=== PATIENT | male | born 1990 | race Caucasian/White ===

== ENCOUNTER 2020-08-31 10:28 | Inpatient (IN) | payer MEDICAID, SELFPAY ==
[2020-08-31] VITALS (7 sets, daily range): BP systolic 109–128; BP diastolic 64–95; PULSE 74–112; RESP 16–21; TEMP 36.6–37; O2SAT 88–99; BMI 20.9
[2020-08-31] MEDS: haloperidol inj 5 mg/mL INJ 1 mL IM (11:31)
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
[2020-08-31] MEDS: LORazepam 2 mg/mL INJ 1 mL IM (11:39)
[2020-08-31] MEDS: diphenhydrAMINE 50 mg/mL SDV 1mL IM (11:39)
--- NOTE | 2020-08-31 11:50 | PC.NURSE ---
people present at code 10 ISMA MARIANO, FATEMEH GUERRIER
[2020-08-31 12:05] LABS: Add Urine Microscopic? NO; Charge for UA Resulting for Rev
[2020-08-31 12:21] LABS: Bilirubin Urine 1+ (Negative); Blood Urine Neg (Negative); Glucose Urine UA Norm (Normal); Ketones Urine 2+ (Negative); Leukocyte Esterase Urine Negative (Negative); Nitrate Urine Negative (Negative); Protein Urine Neg (Negative); Urine Appearance Clear (CLEAR); Urine Color Yellow (Yellow); Urobilinogen Urine 4 mg/dL (Negative); pH Urine 7 (5-7)
[2020-08-31 12:27] LABS: Amphetamines Screen Urine Positive (Negative); Barbiturates Screen Urine Negative (Negative); Benzodiazepines Screen Urine Positive (Negative); Cocaine Screen Urine Negative (Negative); Opiate Screen Urine Negative (Negative); PCP Screen Urine Negative (Negative); THC Screen Urine Negative (Negative)
[2020-08-31 12:48] LABS: Basophils # 0.1 10^3/uL (0.0-0.1); Basophils % 0.6 %; Eosinophils # 0.3 10^3/uL (0.0-0.8); Eosinophils % 1.7 %; Hematocrit 44.8 % (42.0-52.0); Hemoglobin 15.2 g/dL (11.7-16.6); Lymphocytes % 17.8 %; Mean Corpuscular HGB Conc 33.9 g/dL (30.0-36.0); Mean Corpuscular Hemoglobin 29.3 pg (28.0-34.0); Mean Corpuscular Volume 86.5 fL (80-94); Mean Platelet Volume 11.2 fL (7.4-10.4); Monocytes # 1.6 10^3/uL (0.2-0.9); Monocytes % 9.3 %; Neutrophils # 11.97 10^3/uL (1.8-7.7); Neutrophils % 70.2 %; Nucleated Red Blood Cells % 0 %; Platelet Count 282 10^3/cmm (130-400); Red Blood Count 5.18 10^6/uL (4.1-5.3); Red Cell Distribution Width 12.7 % (12.1-15.1)
[2020-08-31 13:02] LABS: Alanine Aminotransferase 21 U/L (0-41); Albumin Level 4.6 g/dL (3.5-5.2); Alkaline Phosphatase 98 IU/L (40-130); Anion Gap 15.8 (5-19); Aspartate Amino Transferase 26 U/L (0-40); Blood Urea Nitrogen 13 mg/dL (6-20); Calcium 9.5 mg/dL (8.5-10.5); Carbon Dioxide 28 mmol/L (22-29); Chloride 98 mmol/L (98-107); Glucose 92 mg/dL (65-115); Osmolality Calculated 286 mOsm/kg (285-295); Potassium 3.8 mmol/L (3.5-5.1); Sodium 138 mmol/L (136-145); Total Bilirubin 0.4 mg/dL (0.15-1.2); Total Protein 7.6 g/dL (6.6-8.7)
[2020-08-31 13:08] LABS: Acetaminophen < 5.0 ug/mL (10-30); Alcohol Level < 10 mg/dL (0-10); Salicylate < 0.3 mg/dL (3-10)
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
[2020-09-01 06:00] VITALS: BP 106/62; PULSE 62; RESP 17; TEMP 36.4; O2SAT 96
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
[2020-09-01] MEDS: quetiapine 100 mg Tablet PO (11:57)
[2020-09-01] MEDS: LORazepam 0.5 mg Tablet PO (11:57)
[2020-09-01] MEDS: PARoxetine 20 mg Tablet PO (11:57)
[2020-09-01 13:55] VITALS: BP 105/79; PULSE 62; RESP 17; TEMP 37; O2SAT 96
[2020-09-01] MEDS: BuSPIRONE 10 mg Tablet 15 MG PO (20:45)
[2020-09-01 20:57] VITALS: BP 95/59; PULSE 90; RESP 19; TEMP 37.1; O2SAT 95
[2020-09-02 06:00] VITALS: RESP 19
[2020-09-02] MEDS: LORazepam 0.5 mg Tablet PO (08:22)
[2020-09-02] MEDS: BuSPIRONE 10 mg Tablet 15 MG PO (08:22)
[2020-09-02] MEDS: quetiapine 100 mg Tablet PO (08:22)
[2020-09-02] MEDS: PARoxetine 20 mg Tablet PO (08:22)
[2020-09-02] MEDS: risperiDONE 1 mg Tablet 0.5 MG PO (08:22)
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
[2020-09-02 13:39] VITALS: RESP 19
--- NOTE | 2020-09-02 15:53 | PC.RESP ---
SMOKING CESSATION INFORMATION SENT TO PATIENT.
== END 2020-09-02 15:00 | disposition home or self-care (01) | DRG 885 ==
LOC: ER 13:00 → NP 13:10
PROVIDERS: Admitting Provider Psychiatry & Neurology Psychiatry; Emergency Provider Emergency Medicine; Visit Provider Psychiatry & Neurology Psychiatry
DX: F28 Other psychotic disorder not due to a substance or known physiological condition (principal); F32.9 Major depressive disorder, single episode, unspecified; Z81.8 Family history of other mental and behavioral disorders; Z91.14 Patient's other noncompliance with medication regimen; F10.21 Alcohol dependence, in remission; F17.210 Nicotine dependence, cigarettes, uncomplicated; F15.21 Other stimulant dependence, in remission; F12.21 Cannabis dependence, in remission; F41.1 Generalized anxiety disorder
CPT/HCPCS: 80053; 80306; 80307; 81003; 85025; 96372; 99285; J1200; J1630; J2060